=== PATIENT | female | born 1950 | race Caucasian/White ===

== ENCOUNTER 2017-07-03 07:59 | Day surgery (SDC) | payer MEDICARE, OTHER ==
[~2017-07-03 07:59] MED LIST: Dexamethasone 4 MG/ML SDV ONE; Lactated Ringers 0 ML ONE; Lactated Ringers 1,000 ML IV SCH; Lidocaine 1% 4 ML ONE; Lidocaine 1%/Sod Bicarbonate in NS 8.4% 1 ML Syringe IDERM PRN; Lidocaine 1%/Sod Bicarbonate in NS 8.4% 1 ML Syringe IV PRN; Midazolam 1 MG/ML 2 ML SDV ONE; Ondansetron 4 MG/2 ML SDV ONE; Propofol 200 MG/20 ML SDV ONE; Sodium Chloride 0.9% 10 ML Syringe FLUSH PRN; ceFAZolin 1 GM Vial ONE; fentaNYL 250 MCG/5 ML SDV ONE
[2017-07-03] MEDS ORDERED: Lidocaine 1% with EPINEPHrine 1:100,000 20 ML MDV ONE (08:08)
[2017-07-03] MEDS ORDERED: Bupivacaine 0.5%/EPINEPHrine 1:200,000 50 ML MDV ONE (08:08)
--- NOTE | 2017-07-03 08:30 | PCM.PREANE ---
Preanesthetic Assessment - Anesthesia/Transfusion/Family Hx Anesthesia History: Prior Anesthesia Without Reaction Family History of Anesthesia Reaction: No Transfusion History: Prior Transfusion Without Reaction - Review of Systems General: No Symptoms Pulmonary: No Symptoms Cardiovascular: No Symptoms, Dyspnea on Exertion Gastrointestinal: No Symptoms Neurological: No Symptoms Other: Reports: Diabetes, Thyroid Problems - Physical Assessment NPO Status Date: 07/02/17 NPO Status Time: 21:00 Pulse: 73 O2 Sat by Pulse Oximetry: 97 Respiratory Rate: 16 Blood Pressure: 159/77 Temperature: 99 F Height: 5 ft 2 in Weight: 99 kg ASA Class: 3 Mental Status: Alert & Oriented x3 Airway Class: Mallampati = 1 Dentition: Reports: Normal Dentition Thyro-Mental Finger Breadths: 3 Mouth Opening Finger Breadths: 3 ROM/Head Extension: Full Lungs: Clear to Auscultation, Normal Respiratory Effort Cardiovascular: Regular Rate, Regular Rhythm - Allergies Allergies/Adverse Reactions: Allergies Allergy/AdvReac Type Severity Reaction Status Date / Time acetaminophen Allergy Tachycardia Verified 07/02/17 12:04 [From Coricidin] chlorpheniramine Allergy Tachycardia Verified 07/02/17 12:04 [From Coricidin] mold Allergy Cannot Verified 01/13/16 15:20 Remember oxycodone [From Tylox] Allergy Cannot Verified 01/13/16 15:20 Remember phenylpropanolamine Allergy Tachycardia Verified 07/02/17 12:04 [From Coricidin] naproxen [From Aleve] AdvReac Nausea Verified 01/16/16 12:21 contrast dye Allergy Anaphylactic Uncoded 01/13/16 15:20 Shock metals Allergy Rash Uncoded 01/13/16 15:20 pears,plumps,apricots, AdvReac Other Uncoded 01/16/16 12:21 peaches - Blood Blood Available: No - Acknowledgements Anesthesia Type Planned: General Anesthesia Pt an Appropriate Candidate for the Planned Anesthesia: Yes Alternatives and Risks of Anesthesia Discussed w Pt/Guardian: Yes Pt/Guardian Understands and Agrees with Anesthesia Plan: Yes PreAnesthesia Questionnaire HEENT History: Reports: Allergic Rhinitis, Impaired Vision, Other (See Below) Other HEENT History: wears glasse Cardiovascular History: Reports: Hypertension Respiratory History: Reports: Sleep Apnea (cpap) Gastrointestinal History: Reports: Cholelithiasis, Gastritis, GERD, Hemorrhoids , Other (See Below) Other Gastrointestinal History: RUQ pain 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: Reports: Endometriosis Other OB/BYN History: I&D of labial sebacceous cyst Musculoskeletal History: Reports: Fibromyalgia Endocrine/Metabolic History: Reports: Diabetes, Type II, Hypothyroidism - Past Surgical History GI Surgical History: Reports: Cholecystectomy Female Surgical History: Reports: Breast Biopsy, Breast Reduction, Hysterectomy Other Female Surgeries/Procedures: bladder surgery Male Surgical History: Reports: Other (See Below) Endocrine Surgical History: Reports: Other (See Below) (neck lymph node) Musculoskeletal Surgical History: Reports: Other (See Below) Other Musculoskeletal Surgeries/Procedures:: Right total knee, L shoulder surgery, foot surgery - SUBSTANCE USE Smoking Status *Q: Former Smoker (quit 35 years ago) Tobacco Use Within Last Twelve Months: No Second Hand Smoke Exposure: No Days Per Week of Alcohol Use: 0 Recreational Drug Use History: No - HOME MEDS Home Medications: Home Meds Albuterol Sulfate [Proair Hfa] 1 puff IH Q6HR PRN 01/13/16 [History] Cetirizine [ZyrTEC] 10 mg PO DAILY 01/13/16 [History] DULoxetine [Cymbalta] 60 mg PO DAILY 01/13/16 [History] Enalapril/Hydrochlorothiazide [Enalapril-HCTZ 10-25 MG] 10 - 25 mg PO DAILY [History] Levothyroxine 75 mcg PO DAILY 01/13/16 [History] metFORMIN [Glucophage] 1,000 mg PO BID 01/13/16 [History] Cholecalciferol (Vitamin D3) [Vitamin D3] 2,000 unit PO DAILY 07/02/17 [History] Dapagliflozin Propanediol [Farxiga] 10 mg PO DAILY 07/02/17 [History] Gluc 2KCl/Chondr/Malinda Hy/Hy Ac [Glucosamine & Chondroitin Cap] 1 cap PO DAILY [History] Potassium Chloride 20 meq PO DAILY 07/02/17 [History] tiZANidine [Zanaflex] 4 mg PO DAILY 07/02/17 [History] traMADol HCl [Tramadol HCl] 50 mg PO DAILY 07/02/17 [History] - CURRENT (IN HOUSE) MEDS Current Meds: Current Medications Lactated Ringer's (Ringers, Lactated) 1,000 mls @ 125 mls/hr IV ASDIRECTED [facility] Lidocaine/Sodium Bicarbonate (Buffered Lidocaine 1% In Ns 8.4%) 0.25 ml IDERM ONETIME PRN PRN Reason: Prior to IV Start Sodium Chloride (Saline Flush) 10 ml FLUSH ASDIRECTED PRN PRN Reason: Keep Vein Open Discontinued Medications Bupivacaine HCl/Epinephrine Bitart (Marcaine 0.5%/Epinephrine 1:200,000) Confirm Administered Dose 50 ml .ROUTE .STK-MED ONE Stop: 07/03/17 08:09 Cefazolin Sodium (Ancef) Confirm Administered Dose 2 gm .ROUTE .STK-MED ONE Stop: 07/03/17 07:42 Dexamethasone (Dexamethasone) Confirm Administered Dose 4 mg .ROUTE .STK-MED ONE Stop: 07/03/17 07:42 Fentanyl (Sublimaze) Confirm Administered Dose 250 mcg .ROUTE .STK-MED ONE Stop: 07/03/17 07:42 Lactated Ringer's (Ringers, Lactated) 1,000 mls @ 125 mls/hr IV ASDIRECTED [facility] Lactated Ringer's (Ringers, Lactated) Confirm Administered Dose 1,000 mls @ as directed .ROUTE .STK-MED ONE Stop: 07/03/17 07:42 Lidocaine HCl (Xylocaine-Mpf 1%) Confirm Administered Dose 4 mls @ as directed .ROUTE .STK-MED ONE Stop: 07/03/17 07:42 Lidocaine/Epinephrine (Xylocaine 1% With Epinephrine 1:100,000) Confirm Administered Dose 20 ml .ROUTE .STK-MED ONE Stop: 07/03/17 08:09 Lidocaine/Sodium Bicarbonate (Buffered Lidocaine 1% In Ns 8.4%) 0.25 ml IV ONETIME PRN PRN Reason: Prior to IV Start Midazolam HCl (Versed 1 Mg/Ml) Confirm Administered Dose 2 mg .ROUTE .STK-MED ONE Stop: 07/03/17 07:42 Ondansetron HCl (Zofran) Confirm Administered Dose 4 mg .ROUTE .STK-MED ONE Stop: 07/03/17 07:42 Propofol (Diprivan 20 Ml) Confirm Administered Dose 400 mg .ROUTE .STK-MED ONE Stop: 07/03/17 07:42 Sodium Chloride (Saline Flush) 10 ml FLUSH ASDIRECTED PRN PRN Reason: Keep Vein Open
--- NOTE | 2017-07-03 09:50 | PCM.OPNOTE ---
- General Post-Op/Procedure Note Date of Surgery/Procedure: 07/03/17 Operative Procedure(s): Open incarcerated umbilical hernia repair with primary closure Findings: 1 cm fascial defect containing herniated omental fat Pre Op Diagnosis: Postcholecystectomy supraumbilical port site incarcerated incisional hernia Post-Op Diagnosis: Same Anesthesia Technique: General LMA, Local Primary Surgeon: David Greer Pathology: None EBL in mLs: 1 Complications: None Condition: Good Free Text/Narrative:: After adequate LMA general anesthesia the patient's abdomen was prepped and draped sterilely for an open umbilical hernia repair. A skin incision was made with a 10 blade after local analgesia was given just above the umbilicus through the old port site incision. This incision was deepened to the fascial level sharply through the subcutaneous tissues down to the hernia sac. I circumferentially dissected the hernia sac away from the surrounding subcutaneous tissues and away from the umbilicus. I sharply excised the sac at the fascial margins circumferentially. I then reduced the omental fat which were the contents of the sac. I measured the diameter of the opening to 1 cm. I then closed the fascial defect with 4 interrupted 0 Ethibond sutures. Additional local was given at the fascial and subcutaneous tissue levels. I reattached the umbilical skin to the midline with one [id number] 3-0 Vicryl. The subcutaneous tissues were reapproximated with Vicryl. The skin was closed with 4-0 subcuticular Vicryl. Steri-Strips and gauze were used for the dressing.
[2017-07-03] MEDS ORDERED: Haloperidol Lactate 5 MG/ML SDV IVPUSH PRN (10:01)
[2017-07-03] MEDS ORDERED: Ondansetron 4 MG/2 ML SDV IVPUSH PRN (10:01)
[2017-07-03] MEDS ORDERED: fentaNYL 100 MCG/2 ML SDV IVPUSH PRN (10:01)
[2017-07-03] MEDS ORDERED: traMADol 50 MG Tab PO PRN (10:17)
--- NOTE | 2017-07-03 11:32 | PCM48HPAN ---
Post Anesthesia Note - EVALUATION WITHIN 48HRS OF ANESTHETIC Vital Signs in Normal Range: Yes Patient Participated in Evaluation: Yes Respiratory Function Stable: Yes Airway Patent: Yes Cardiovascular Function Stable: Yes Hydration Status Stable: Yes Pain Control Satisfactory: Yes Nausea and Vomiting Control Satisfactory: Yes Mental Status Recovered: Yes Pulse Rate: 73 Resp Rate: 16 Temperature: 37.2 C Blood Pressure: 159/77
[2017-07-03 11:33] VITALS: BP 159/77
== END 2017-07-03 11:40 | disposition home or self-care (01) ==
LOC: JD.SDS 07:59
PROVIDERS: ATTEND Surgery
DX: K43.0 Incisional hernia with obstruction, without gangrene (principal); G47.33 Obstructive sleep apnea (adult) (pediatric); E11.9 Type 2 diabetes mellitus without complications; E03.9 Hypothyroidism, unspecified; I10 Essential (primary) hypertension; E87.6 Hypokalemia; Z99.89 Dependence on other enabling machines and devices; Z91.09 Other allergy status, other than to drugs and biological substances; Z91.018 Allergy to other foods; Z79.899 Other long term (current) drug therapy
CPT/HCPCS: 36415; 49561; 80048; A9270; J0690; J2250; J2405; J3010; J7120; 00830; J1100; J2001; J2704

== ENCOUNTER 2017-10-17 13:13 | Emergency (ER) | payer MEDICARE, OTHER ==
[2017-10-17] MEDS ORDERED: Sodium Chloride 0.9% 500 ML IV ONE (13:26)
--- NOTE | 2017-10-17 13:40 | CT ---
Head CT Technique: Multiple axial sections of the brain were obtained. Intravenous contrast was not utilized. Comparison: No previous study. Findings: Ventricles along the basal cisterns and sulci over convexities are within normal limits for the patient's age. No abnormal parenchymal densities are seen. No evidence of intracranial hemorrhage. No midline shift or mass effect is seen. Atherosclerotic calcification is seen within the vertebral vessels. Atherosclerotic calcification is noted within the carotid siphon. Visualized sinuses are clear. No acute calvarial abnormality is seen. Impression: 1. No acute intracranial abnormality is seen. Diagnostic code #2
--- NOTE | 2017-10-17 13:46 | EDM.PDOC ---
ED HPI GENERAL MEDICAL PROBLEM - General Chief Complaint: Neuro Symptoms/Deficits Stated Complaint: [facility] Time Seen by Provider: 10/17/17 13:24 Source of Information: Reports: Patient, RN Notes Reviewed - History of Present Illness INITIAL COMMENTS - FREE TEXT/NARRATIVE: 67-year-old female arrives by [facility] stroke alert. Patient had sudden onset about 60 minutes ago of mild to moderate weakness of the left hand and arm, numbness of the left hand and arm as well as "clumsiness. She also was noted to have left facial droop, slurred speech when she was first found by a bystander. She states that she did get up to stand or walk, her left leg would not support her and she fell to the floor. Not able to get up on her own after falling to the floor. EMS has informed us this occurred at about 12:30 male in time, about 60 minutes prior to ED arrival. She does have history of type 2 diabetes, hypertension, on meds for both of those conditions. History of stroke or TIA. She also did get nauseated and did vomit once prior to EMS arrival. EMS arrival and things had improved to where she had normal money counter strength bilaterally. Had continued mild slurred speech and mild left facial droop. She was transported here without further incident. This was called as a stroke alert. Right Lower Posterior Head Pain Score (Numeric/FACES): 2 - Related Data Allergies Allergy/AdvReac Type Severity Reaction Status Date / Time mold Allergy Cannot Verified 10/17/17 13:22 Remember oxycodone [From Tylox] Allergy Cannot Verified 10/17/17 13:22 Remember acetaminophen AdvReac Tachycardia Verified 10/17/17 13:22 [From Coricidin] chlorpheniramine AdvReac Tachycardia Verified 10/17/17 13:22 [From Coricidin] naproxen [From Aleve] AdvReac Nausea Verified 10/17/17 13:22 phenylpropanolamine AdvReac Tachycardia Verified 10/17/17 13:22 [From Coricidin] contrast dye Allergy Anaphylactic Uncoded 10/17/17 13:22 Shock metals Allergy Rash Uncoded 10/17/17 13:22 pears,plumps,apricots, AdvReac Other Uncoded 10/17/17 13:22 peaches Home Meds: Home Meds Albuterol Sulfate [Proair Hfa] 1 puff IH Q6HR PRN 01/13/16 [History] Cetirizine [ZyrTEC] 10 mg PO DAILY 01/13/16 [History] DULoxetine [Cymbalta] 60 mg PO DAILY 01/13/16 [History] Enalapril/Hydrochlorothiazide [Enalapril-HCTZ 10-25 MG] 10 - 25 mg PO DAILY [History] Levothyroxine 75 mcg PO DAILY 01/13/16 [History] metFORMIN [Glucophage] 1,000 mg PO BID 01/13/16 [History] Cholecalciferol (Vitamin D3) [Vitamin D3] 2,000 unit PO DAILY 07/02/17 [History] Dapagliflozin Propanediol [Farxiga] 10 mg PO DAILY 07/02/17 [History] Gluc 2KCl/Chondr/Malinda Hy/Hy Ac [Glucosamine & Chondroitin Cap] 1 cap PO DAILY [History] Potassium Chloride 20 meq PO DAILY 07/02/17 [History] tiZANidine [Zanaflex] 4 mg PO DAILY 07/02/17 [History] traMADol HCl [Tramadol HCl] 50 mg PO DAILY 07/02/17 [History] traMADol [Ultram] 50 mg PO ASDIRECTED PRN 07/03/17 [History] Past Medical History HEENT History: Reports: Allergic Rhinitis, Impaired Vision, Other (See Below) Other HEENT History: wears glasse Cardiovascular History: Reports: Hypertension Respiratory History: Reports: Sleep Apnea Gastrointestinal History: Reports: Cholelithiasis, Gastritis, GERD, Hemorrhoids , Other (See Below) Other Gastrointestinal History: RUQ pain 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: Reports: Endometriosis Other OB/BYN History: I&D of labial sebacceous cyst Musculoskeletal History: Reports: Fibromyalgia Endocrine/Metabolic History: Reports: Diabetes, Type II, Hypothyroidism - Past Surgical History GI Surgical History: Reports: Cholecystectomy Female Surgical History: Reports: Breast Biopsy, Breast Reduction, Hysterectomy Other Female Surgeries/Procedures: bladder surgery Endocrine Surgical History: Reports: Other (See Below) Musculoskeletal Surgical History: Reports: Other (See Below) Other Musculoskeletal Surgeries/Procedures:: Right total knee, L shoulder surgery, foot surgery Social & Family History - Tobacco Use Smoking Status *Q: Never Smoker - Caffeine Use Caffeine Use: Reports: Coffee ED ROS GENERAL - Review of Systems Review Of Systems: See Below Constitutional: Denies: Fever, Chills, Diaphoresis HEENT: Denies: Vertigo, Vision Change Respiratory: Denies: Shortness of Breath GI/Abdominal: Reports: Nausea (Patient did vomit once shortly after onset of symptoms), Vomiting. Denies: Abdominal Pain Musculoskeletal: Reports: Neck Pain (Very mild right posterior neck discomfort) Skin: Reports: No Symptoms Neurological: Reports: Dizziness, Numbness (Left hand and arm), Weakness (Left facial droop, left hand and arm weakness, left lower extremity weakness), Change in Speech (Slurred speech) ED EXAM, NEURO - Physical Exam Exam: See Below General Appearance: Alert, No Apparent Distress Eye Exam: Bilateral Eye: PERRL Throat/Mouth: Normal Inspection, Normal Oropharynx Head Exam: Atraumatic Neck: Supple, Non-Tender, Full Range of Motion Respiratory/Chest: No Respiratory Distress, Lungs Clear, Normal Breath Sounds Cardiovascular: Regular Rate, Rhythm GI/Abdominal: Soft, Non-Tender Neurological: Alert, Oriented x 3, Other (No noticeable money counter strength difference at this time, no noticeable weakness left upper extremity at this time, very mild ataxia with left finger to nose testing compared to right, very slight weakness left leg straight leg raising off the bed compared to the right. Very slight left facial droop, speech is very mildly slurred but appropriate) Extremities: Normal Inspection, Normal Range of Motion. No: Pedal Edema, Leg Pain Skin Exam: Warm, Dry, Normal Color EKG INTERPRETATION EKG Date: 10/17/17 Rhythm: NSR [place]ona: Normal P-Wave: Present QRS: Normal ST-T: Normal Course - Vital Signs Last Recorded V/S: Last Vital Signs Temp 97.8 F 10/17/17 13:48 Pulse 74 10/17/17 13:48 Resp 22 H 10/17/17 13:48 BP 158/58 H 10/17/17 13:48 Pulse Ox 100 10/17/17 13:48 - Orders/Labs/Meds Orders: Active Orders 24 hr Category Date Time Status EKG 12 Lead [EKG Documentation Completion] [RC] STAT Care 10/17/17 13:27 Active Labs: Laboratory Tests 10/17/17 10/17/17 10/17/17 Range/Units 13:24 13:24 13:24 WBC 8.01 (3.98-10.04) K/mm3 RBC 4.52 (3.98-5.22) M/mm3 Hgb 13.5 (11.2-15.7) gm/L Hct 41.2 (34.1-44.9) % MCV 91.2 (79.4-94.8) fl MCH 29.9 (25.6-32.2) pg MCHC 32.8 (32.2-35.5) g/dl RDW Std Deviation 44.6 (36.4-46.3) fL Plt Count 214 (182-369) K/mm3 MPV 11.4 (9.4-12.3) fl Neut % (Auto) 67.0 (34.0-71.1) % Lymph % (Auto) 25.0 (19.3-51.7) % Casey % (Auto) 6.5 (4.7-12.5) % Eos % (Auto) 0.7 (0.7-5.8) Baso % (Auto) 0.6 (0.1-1.2) % Neut # (Auto) 5.36 (1.56-6.13) K/mm3 Lymph # (Auto) 2.00 (1.18-3.74) K/mm3 Casey # (Auto) 0.52 H (0.24-0.36) K/mm3 Eos # (Auto) 0.06 (0.04-0.36) K/mm3 Baso # (Auto) 0.05 (0.01-0.08) K/mm3 PT 9.7 (9.5-12.1) SECONDS INR < 0.93 APTT 28 (24-31) SECONDS Sodium 135 L (136-145) mEq/L Potassium 3.3 L (3.5-5.1) mEq/L Chloride 97 L (98-107) mEq/L Carbon Dioxide 27 (21-32) mEq/L Anion Gap 14.3 (5-15) BUN 11 (7-18) mg/dL Creatinine 1.0 (0.55-1.02) mg/dL Est Cr Clr Drug Dosing TNP Estimated GFR (MDRD) 55 (>60) mL/min BUN/Creatinine Ratio 11.0 L (14-18) Glucose 190 H (80-115) mg/dL Calcium 9.2 (8.5-10.1) mg/dL Total Bilirubin 0.3 (0.2-1.0) mg/dL AST 21 (15-37) U/L ALT 15 (14-59) U/L Alkaline Phosphatase 114 (46-116) U/L Total Protein 7.6 (6.4-8.2) g/dl Albumin 3.3 L (3.4-5.0) g/dl Globulin 4.3 gm/dL Albumin/Globulin Ratio 0.8 L (1-2) Meds: Medications Discontinued Medications Generic Name Dose Route Start Last Admin Trade Name Freq PRN Reason Stop Dose Admin Sodium Chloride 500 mls @ 999 mls/hr 10/17/17 13:26 10/17/17 13:55 Normal Saline IV 10/17/17 13:56 999 mls/hr .BOLUS ONE Administration - Re-Assessments/Exams Free Text/Narrative Re-Assessment/Exam: 10/17/17 14:49. Patient was directed immediately to CT upon arrival to ED. That did metal turner to be normal. Neuro exam was as documented. Symptoms at time of my exam were mostly very slight facial droop, very mild slurred speech, slight ataxia finger to nose testing left upper extremity, very mild weakness left leg straight leg raising compared to the right. We did not try get her up to walk but at the scene at time of her symptoms she was unable to stand or walk. Therefore her deficit was much more severe initially with rapid resolution to her current state even over the first 10-15 minutes. Arrangements have been made to transfer her to [place] where interventional therapy will be available if needed. I have discussed this with Dr. Castillo, Neurologist admissions representative for [facility] who does accept patient in transfer. [facility] fixed wing was dispatched to our airport shortly after patient arrival to ED. We have transferred her by fixed wing to [facility] for further eval and treatment. Departure - Departure Time of Disposition: 14:00 Disposition: DC/Tfer to Acute Hospital 02 Condition: Serious Clinical Impression: CVA (cerebral vascular accident) Qualifiers: CVA mechanism: unspecified Qualified Code(s): I63.9 - Cerebral infarction, unspecified - Discharge Information Referrals: Angella Dumont PA [Primary Care Provider] - Forms: ED Department Discharge - My Orders Last 24 Hours: My Active Orders 10/17/17 13:27 EKG 12 Lead [EKG Documentation Completion] [RC] STAT - Assessment/Plan Last 24 Hours: My Active Orders 10/17/17 13:27 EKG 12 Lead [EKG Documentation Completion] [RC] STAT
[2017-10-17 13:49] VITALS: BP 158/58
== END 2017-10-17 14:05 ==
LOC: JD.ED 13:13
DX: I63.9 Cerebral infarction, unspecified (principal); E11.9 Type 2 diabetes mellitus without complications; I10 Essential (primary) hypertension; K21.9 Gastro-esophageal reflux disease without esophagitis; E03.9 Hypothyroidism, unspecified; Z79.84 Long term (current) use of oral hypoglycemic drugs; Z79.899 Other long term (current) drug therapy; Z88.8 Allergy status to other drugs, medicaments and biological substances; Z91.041 Radiographic dye allergy status; Z91.018 Allergy to other foods; Z88.6 Allergy status to analgesic agent
CPT/HCPCS: 36415; 70450; 80053; 85025; 85610; 85730; 93005; 99285; J7040